=== PATIENT | male | born 2005 | race Caucasian/White ===

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

== ENCOUNTER 2024-08-26 23:07 | Emergency (ER) | payer OTHER, SELFPAY ==
--- NOTE | ~2024-08-26 | CT_ITS ---
CT of the Abdomen and Pelvis: Indication: Abdominal pain Technique: 2.5 mm axial scans were obtained through the abdomen and pelvis following intravenous adm inistration of 100 cc of Omnipaque 350. Dose reduction technique was used on this scan by utilizing a utomated exposure control and iterative reconstruction technique. The dose-length product (DLP) was 1 949.45 mGy-cm. Findings: Scans through the lung bases demonstrate minimal area of groundglass opacity in the left l ower lobe. The liver, spleen, pancreas, gallbladder, adrenals and kidneys are within normal limits. No evidence of aortic aneurysm. No lymphadenopathy. No bowel obstruction or bowel wall thickening. There are minimally distended, fluid-filled small krish l loops.. Images through the pelvis were performed. Urinary bladder unremarkable. No pelvic mass seen. No ascit es. Impression: Minimally distended fluid-filled small bowel loops could reflect small bowel enteritis, or possibly v garrett early partial small bowel obstruction. Focal area of groundglass opacity left lower lobe, possibly focal pneumonitis. Reviewed, dictated and finalized at [facility]. 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 Focal area of groundglass opacity left lower lobe, possibly focal pneumonitis.
[2024-08-26 23:11] VITALS: BP 153/90; PULSE 98; RESP 16; TEMP 36.9; O2SAT 100
[2024-08-27] VITALS (7 sets, daily range): BP systolic 106–170; BP diastolic 68–103; PULSE 89–103; RESP 14–20; O2SAT 98–100
[2024-08-27 00:06] LABS: Basophils Percent Auto 0.2 % (0.2-1.2); Eosinophils Absolute Auto 0.1 K/mm3 (0-0.3); Eosinophils Percent Auto 0.5 % (0-4.4); Hematocrit 49.3 % (42.0-52.0); Hemoglobin 16.8 g/dL (14.0-18.0); Immature Granulocyte Absolute 0.35 K/mm3 (0.00-0.031); Immature Granulocyte Percent A 2.1 % (0-0.5); Lymphocytes Absolute Auto 1.31 K/mm3 (0.9-3.2); Lymphocytes Percent Auto 7.9 % (18.3-44.2); Mean Corpuscular HGB Conc 34.1 g/dl (32-36); Mean Corpuscular Hemoglobin 31.4 pg (26-34); Mean Corpuscular Volume 92.1 fl (80-100); Mean Platelet Volume 10.1 fl (7.4-10.4); Monocytes Absolute Auto 1.1 K/mm3 (0.1-0.6); Monocytes Percent Auto 6.4 % (2.6-8.5); Neutrophils Absolute Auto 13.7 K/mm3 (1.3-6.7); Neutrophils Percent Auto 82.9 % (45.5-73.1); Platelet Count Result 307 k/mm3 (150-375); Red Blood Count 5.35 M/mm3 (4.6-6.20); Red Cell Distribution Width 13.1 % (11.5-14.5); White Blood Count 16.5 K/mm3 (4.5-10.0)
[2024-08-27] MEDS: SODIUM CHLORIDE 0.9% IV 1,000 ML 999 ML IV CONT (00:06)
[2024-08-27] MEDS: ONDANSETRON INJ 4 MG/2 ML VIAL IV PUSH (00:06)
[2024-08-27 00:11] LABS: Alanine Aminotransferase 54 U/L (6-50); Albumin Level 4.3 g/dL (3.7-5.6); Alkaline Phosphatase 78 U/L (58-237); Anion Gap 11 mmol/L (4-12); Aspartate Amino Transferase 29 U/L (17-59); Bilirubin,Total 0.6 mg/dL (0.2-1.3); Blood Urea Nitrogen 19 mg/dL (8-21); Carbon Dioxide 23 mmol/L (22-30); Chloride 106 mmol/L (98-107); Estimated CRCL calculation 217 ml/min; Estimated Glomerular Filt Rate > 60; Glucose 115 mg/dL (65-110); Lipase 42 U/L (23-300); Sodium 140 mmol/L (134-143)
--- NOTE | 2024-08-27 00:41 | ED_ITS ---
HPI - Abdominal Pain General Chief Complaint: Abdominal Pain Stated Complaint: abd pain,n/v Time Seen by Provider: 08/26/24 23:40 Source: patient Mode of arrival: ambulatory Limitations: no limitations History of Present Illness HPI narrative: This is a 18-year-old male presents to the emergency department for left-sided abdominal pain. Reports associated nausea and vomiting. Denies fevers or urinary symptoms Related Data Allergies Allergy/AdvReac Type Severity Reaction Status Date / Time amoxicillin Allergy Hives Verified 04/07/23 10:59 Review of Systems 2 Review of Systems: CONSTITUTIONAL: Denies fever GASTROINTESTINAL: Reports abdominal pain, nausea, vomiting GENITOURINARY: Denies dysuria All systems reviewed & are unremarkable except as noted in HPI and below PMFSH Past Medical History Medical History (Updated 08/27/24 @ 02:42 by Belén Ibarra PA-C) No active medical problems Social History Social History (Updated 08/27/24 @ 00:42 by Belén Ibarra PA-C) Smoking status: Never smoker Exam 2 Narrative: GENERAL: Well-appearing, well-nourished, and in no acute distress. HEAD: Normocephalic, atraumatic. EYES: EOMI. CHEST: Clear to auscultation. No respiratory distress. No wheezes rales or rhonchi HEART: Regular rate and rhythm. No murmur heard. Normal peripheral pulses. ABDOMEN: Soft, nondistended, normal active bowel sounds. Tender to palpation throughout the left side of the abdomen, without guarding EXTREMITIES: Normal range of motion. No edema. SKIN: Warm, dry, no rash. NEURO: No focal deficits. Alert and oriented x3. PSYCH: Normal mood and affect Course Course Emergency Course: patient updated on workup and agrees with plan of care Vital Signs Vital signs: Vital Signs Temperature 98.4 F 08/26/24 23:11 Pulse Rate 98 08/26/24 23:11 Respiratory Rate 16 08/26/24 23:11 Blood Pressure 153/90 H 08/26/24 23:11 Pulse Oximetry 100 08/26/24 23:11 Oxygen Delivery Room Air 08/26/24 23:11 Temperature 98.4 F 08/26/24 23:11 Pulse Rate 98 08/27/24 02:30 Respiratory Rate 16 08/27/24 02:30 Blood Pressure 143/83 H 08/27/24 02:30 Pulse Oximetry 98 08/27/24 02:30 Oxygen Delivery Room Air 08/26/24 23:11 MDM - Abdominal Pain MDM Narrative Medical decision making narrative: Patient presents to the emergency department for abdominal pain, nausea and vomiting. He is afebrile and nontoxic appearing. CBC with leukocytosis to 16.5. Metabolic panel without concerning findings. Lipase is normal. Urine with some evidence of dehydration. Patient hydrated with a L of IV fluids in the ED. CT abdomen pelvis shows findings likely of enteritis. Patient is having bowel movements in the ER. Tolerating oral intake. patient updated on workup and agrees with plan of care. He is to follow up with primary provider. He was given warnings to return to the ER Differential Diagnosis Differential diagnosis: Likely abdominal pain, calculus of kidney, diverticulitis, gastroenteritis and small bowel obstruction Lab Data Attestation: I reviewed the patient's lab results. 08/26/24 23:42 08/26/24 23:42 Labs: Lab Results 08/26/24 08/27/24 08/27/24 Range/Units 23:42 01:35 02:06 WBC 16.5 H (4.5-10.0) K/mm3 RBC 5.35 (4.6-6.20) M/mm3 Hgb 16.8 (14.0-18.0) g/dL Hct 49.3 (42.0-52.0) % MCV 92.1 (80-100) fl MCH 31.4 (26-34) pg MCHC 34.1 (32-36) g/dl RDW 13.1 (11.5-14.5) % Plt Count 307 (150-375) k/mm3 MPV 10.1 (7.4-10.4) fl Immature Gran % (Auto) 2.1 H (0-0.5) % Neut % (Auto) 82.9 H (45.5-73.1) % Lymph % (Auto) 7.9 L (18.3-44.2) % Hardeman % (Auto) 6.4 (2.6-8.5) % Eos % (Auto) 0.5 (0-4.4) % Baso % (Auto) 0.2 (0.2-1.2) % Lymph # (Auto) 1.31 (0.9-3.2) K/mm3 Hardeman # (Auto) 1.1 H (0.1-0.6) K/mm3 Eos # (Auto) 0.1 (0-0.3) K/mm3 Baso # (Auto) 0.0 (0.0-0.1) K/mm3 Abs Immat Gran (auto) 0.35 H (0.00-0.031) K/mm3 Absolute Neuts (auto) 13.7 H (1.3-6.7) K/mm3 Absolute Nucleated RBC 0.000 (0.0-0.012) K/mm3 Nucleated RBC % 0.0 (0.0-0.2) % Sodium 140 (134-143) mmol/L Potassium 4.0 (3.4-5.0) mmol/L Chloride 106 (98-107) mmol/L Carbon Dioxide 23 (22-30) mmol/L Anion Gap 11 (4-12) mmol/L BUN 19 (8-21) mg/dL Creatinine 0.70 (0.7-1.3) mg/dL Estim Creat Clear Calc 217 ml/min Estimated GFR > 60 (59 - ) Glucose 115 H (65-110) mg/dL Calcium 9.0 (8.9-10.7) mg/dL Total Bilirubin 0.6 (0.2-1.3) mg/dL AST 29 (17-59) U/L ALT 54 H (6-50) U/L Alkaline Phosphatase 78 (58-237) U/L Total Protein 7.0 (6.3-8.6) g/dL Albumin 4.3 (3.7-5.6) g/dL Lipase 42 (23-300) U/L Urine Color Yellow (Yellow) Urine Appearance Clear (Clear) Urine pH 7.5 (5.0-9.0) Ur Specific Chandler > 1.045 H (1.001-1.035) Urine Protein Negative (Negative) mg/dL Urine Glucose (UA) Negative (Negative) mg/dL Urine Ketones Negative (Negative) mg/dL Ur Blood (Man) Negative (Negative) Urine Nitrate Negative (Negative) Urine Bilirubin Negative (Negative) Urine Urobilinogen 1.0 (<2.0) mg/dL Leukocyte Esterase Rfl Negative (Negative) RCIARDO/UL Influenza A (RT-PCR) Negative (Negative) Influenza B (RT-PCR) Negative (Negative) RSV (RT-PCR) Negative (Negative) SARS-CoV-2 RNA (RT-PCR) Negative (Negative) Imaging Data Radiologist's impression: CT abdomen/pelvis: Fluid distended small bowel in the abdomen and pelvis measuring up to 3.4 cm, concerning for partial small bowel obstruction. No definite transition point. Findings may be the result of enteritis given that there is wall thickening of small bowel in the left upper quadrant. No free air Critical Care Time Critical Care Time Critical Care Time: No Discharge Plan Discharge Clinical Impression: Gastroenteritis Patient Disposition: Home, Self-Care Condition: Improved Instructions: Gastroenteritis (ED), Abdominal Pain (ED) Additional Instructions: Return to the ER if you experience fever, worsening abdominal pain with nausea and vomiting, you are unable to keep down liquids or solids, or any other symptoms that are concerning to you Small, frequent meals. Park diet. Remain well hydrated. Ondansetron as needed for nausea Follow up with primary care doctor Patient Language: Ethiopian Prescriptions: New ondansetron 4 mg tablet,disintegrating 4 mg PO Q8H PRN (Reason: nausea and vomiting) Qty: 10 0RF No Action cetirizine-pseudoephedrine [Zyrtec-D] 5-120 mg tablet extended release 12 hr 1 tablet PO Q12H PRN (Reason: nasal congestion) Qty: 12 0RF dextromethorphan-guaifenesin [Mucinex DM] 60-1,200 mg tablet extended release 12 hr 1 tablet PO Q12H Qty: 12 0RF Follow-up/Referrals: PHYSICIAN NOT ON STAFF,NONSTAFF [Primary Care Provider] -
[2024-08-27] MEDS: DICYCLOMINE HCL INJ 20 MG/2 ML VIAL IM (01:35)
[2024-08-27] MEDS: KETOROLAC 15 MG/ML VIAL (*BKC) IV PUSH (01:36)
[2024-08-27 01:41] LABS: Add Urine Microscopic? NO; Appearance Urine Clear (Clear); Bilirubin Urine Negative (Negative); Blood Urine Negative (Negative); Color Urine Yellow (Yellow); Glucose Urine UA Negative (Negative); Ketones Urine Negative (Negative); Leukocyte Esterase Ur Negative LEU/UL (Negative); Nitrate Urine Negative (Negative); Protein Urine Negative (Negative); Specific Grav Ur > 1.045 (1.001-1.035); pH Urine 7.5 (5.0-9.0)
[2024-08-27 02:47] LABS: Influenza A QL RT-PCR Negative (Negative); Influenza B QL RT-PCR Negative (Negative); RSV RNA, RT-PCR Negative (Negative); SARS-CoV-2 RNA PCR Negative (Negative)
--- OUTSIDE RECORDS SUMMARY | 2024-08-28 20:46 | XMS_ITS | Encounter Summary ---
Author Organization [facility] Address [address] [place] [address]. 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 Gender Identity Not on file Sexual Orientation Not on file documented as of this encounter Plan of Treatment Not on file documented as of this encounter Visit Diagnoses Not on filedocumented in this encounter Additional Health Concerns Infection Onset Date Last Indicated Resolved Time COVID-19 Rule Out 11/05/2020 11/05/2020 11/05/2020 6:43 PM CDT COVID-19 Rule Out 08/13/2021 08/13/2021 08/14/2021 7:00 PM ENDS BREAKAGE CLERK COVID-19 Confirmed 08/13/2021 08/13/2021 12:33 AM ENDS BREAKAGE CLERK COVID-19 Rule Out 07/31/2022 07/31/2022 07/31/2022 5:20 PM ENDS BREAKAGE CLERK documented as of this encounter Care Teams Hot Air Furnace Installer And Repairer Relationship Specialty Start Date End Date None, Provider, PCP - General 11/05/20 documented as of this encounter
--- OUTSIDE RECORDS SUMMARY | 2024-08-28 20:46 | XMS_ITS | Clinical Summary ---
Author Organization [facility] Address [address] [place] [address]. [place], [place] [id number] [place] [address] Care Team Providers Care Lending Activities Supervisor Name Role Phone None, Provider Primary Care Provider Unavaila ble Allergies Active Allergy Reactions Criticality Noted Date Comments Amoxicillin Hives Medium 11/05/2020 Medications ondansetron (ZOFRAN-ODT) 4 MG disintegrating tablet Take 1 tablet (4 mg total) by mouth every 8 (eight) hours as needed for Nausea. 20 tablet 2 Active ciprofloxacin (CILOXAN) 0.3 % ophthalmic solution Administer 4 drops in left ear twice a day for 7 days. 5 mL 3 Active Active Problems Problem Noted Date Diagnosed Date Preseptal cellulitis of left eye 08/11/2022 Family History Medical History Relation Comments Cancer Maternal Grandfather Ovarian Cancer Maternal Grandmother Relation Status Comments Father Alive Maternal Grandfather Maternal Grandmother Mother Alive Social History Tobacco Use Types Packs/Day Years Used Date Smoking Tobacco: Never Passive Smoke Exposure: Current Smokeless Tobacco: Never Tobacco Cessation:Counseling Given: Not Answered Alcohol Use Standard Drinks/Week Comments Not Currently 0 (1 standard drink = 0.6 oz pur e alcohol) Sex and Gender Information Value Date Recorded Sex Assigned at Not on file 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 Gender Identity Not on file Sexual Orientation Not on file Last Filed Vital Signs Vital Sign Reading Time Taken Comments Blood Pressure 148/78 01/10/2023 9:24 PM CDT Pulse 65 01/10/2023 9:24 PM CDT Temperature 37 ??C (98.6 ??F) 01/10/2023 9:24 PM CDT Respiratory Rate 18 01/10/2023 9:24 PM CDT Oxygen Saturation 100% 01/10/2023 9:24 PM CDT Inhaled Oxygen Concentration - - Weight 133 kg (293 lb 3.4 oz) 01/10/2023 9:24 PM CDT Height 188 cm (6' 2 ) 01/10/2023 9:24 PM CDT Body Mass Index 37.65 01/10/2023 9:24 PM CDT Body Mass Index Percentile 98.96% 01/10/2023 9:2 4 PM CDT Growth Chart: CDC (Boys, 2-2 0 Years) Plan of Treatment Health Maintenance Due Date Last Done Comments Annual Physical 11/02/2007 HPV Vaccines (1 - Male 3-dose series) 11/02/2019 Hepatitis C 2022 COVID-19 Vaccine (2 - season) 2024 02/19/2021 Influenza Adult (#1) 2024 10/08/2014 DTaP, Tdap and Td Vaccines (7 - Td or Tdap) 04/18/2026 04/18/2016, 11/25/2009, 02/13/2006, Additional history exists Pneumococcal Vaccine: Pediatrics (0 to 5 Years) and At-Risk Patients (6 to 64 Years) Aged Out 12/12/2006, 05/02/2005, 03/01/2005, Additional history exists No longer eligible based on patient's age to complete this topic Hepatitis B Vaccines Completed 10/08/2014, 03/01/2005, 2004, Additional history exists Meningococcal Vaccine Aged Out 04/18/2016 No clive josef eligible based on patient's age to complete this topic RSV Immunizations Under 20 Months Aged Out No longer eligible based on patient's age to complete this topic Insurance Advance Directives * Full Code (Latest Code Status on File) Date Activated Date Inactivated Comments 08/11/2022 9:22 PM 08/13/2022 4:08 PM Care Teams Lending Activities Supervisor Relationship Specialty Start Date End Date None, Provider, PCP - General 11/05/20
--- OUTSIDE RECORDS SUMMARY | 2024-08-28 20:50 | XMS_ITS ---
Author Organization [facility] Address [address] [place] [address] Care Team Providers Care Terminal Carman Name Role Phone Zachary Evans Primary Care Provider Dr. Elisa Greenberg [phone] REASON FOR VISIT Test results Encounters Encounter Location Date Provider Diagnosis [facility] [address] [place] [address] 02/26/2024 Zachary Evans Plan Of Treatment No Information Progress Notes * Maribeth CARABALLO WDOB:2005 (18 yo M)Acc No.[id number]:02/26/2024 Patient:?BARAK Maribeth Ayala :2005???Age:18 Y???Sex:Male Address:[address] [place], [address] * true * Date:? 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
--- OUTSIDE RECORDS SUMMARY | 2024-08-28 20:50 | XMS_ITS | Patient Health Record ---
Author Organization [facility] Address [address] [place] [address] Care Team Providers Care Associate Material Handler Name Role Phone Zachary Evans Primary Care Provider Dr. Elisa Greenberg Allergies Allergen (clinical drug ingredient) Drug/Non Drug Allergy documented on EMR Reaction Allergy Type Onset Date Status amoxicillin Amoxicillin anaphylaxis Drug Allergy A ctive Results Component Value Reference Range Notes VITAMIN B12 * Reviewed date:02/26/2024 12:02:22 AM Interpretation:286 Performing Lab:[facility], [address] [place] [address] Notes/Report: VITAMIN B12 [id number] PG/ML Indeterminate Range: 145 - 180 pg/mL Deficient Range: <145 pg/mL BLOOD COUNT WITH DIFF * Reviewed date:02/26/2024 12:02:22 AM Interpretation:Hb 17.1, WBC 8.5 Performing Lab:[facility], [address] [place] [address] Notes/Report: WBC 8.5 3.9-12.0 K/UL RBC 5.69 4.00-6.10 M/UL HEMOGLOBIN 17.1 13.2-18.0 GM/DL HEMATOCRIT 51.4 38.0-55.0 % MCV 90.4 80.0-99.0 FL MCH 30.0 26.0-35.0 PG MCHC 33.2 32.0-37.0 GM/DL RDW 13.5 11.6-15.0 % PLATELET 303 150-450 K/UL MPV 8.9 6.5-11.0 FL METHOD Automated Differential % NEUTROPHIL - AUTOMATED COUNT 66.8 40.0-70.0 % % LYMPHOCYTE - AUTOMATED COUNT 25.4 25.0-45.0 % % MONOCYTE - AUTOMATED COUNT 7.0 2.0-12.0 % % EOSINOPHIL - AUTOMATED COUNT 0.6 0.0-6.0 % % BASOPHIL - AUTOMATED COUNT 0.2 0.0-2.0 % ABSOLUTE NEUTROPHIL - AUTOMATED COUNT 5.7 1.3-7.5 K/UL ABSOLUTE LYMPHOCYTE - AUTOMATED COUNT 2.2 1.3-4.2 K/UL ABSOLUTE MONOCYTE - AUTOMATED COUNT 0.6 0.2-1.0 K/UL ABSOLUTE EOSINOPHIL - AUTOMATED COUNT 0.1 0.0-0.5 K/UL ABSOLUTE BASOPHIL - AUTOMATED COUNT 0.0 <=0.2 K/UL NUCLEATED RBC'S - AUTOMATED COUNT 0.3 COMPREHENSIVE METABOLIC PANE L (CMP) * Reviewed date:02/26/2024 12:02:23 AM Interpretation:GLU 79, GFR 127, ALT 78 Performing Lab:[facility], [address] [place] [id number] Notes/Report: BLOOD UREA NITROGEN 17 6-20 MG/DL SODIUM 140 135-145 MMOL/L POTASSIUM 4.5 3.5-5.2 MMOL/L CHLORIDE 106 98-108 MMOL/L CO2 CONTENT 22 24-32 MMOL/L GLUCOSE 79 65-110 MG/DL CALCIUM 10.1 8.6-10.6 MG/DL CREATININE 0.88 0.50-1.50 MG/DL TOTAL PROTEIN 7.6 6.0-8.0 GM/DL ALBUMIN 5.2 3.4-5.0 GM/DL ALK PHOS 83 40-125 U/L ALT 78 7-50 U/L AST 32 10-40 U/L BILIRUBIN, TOTAL 0.6 0.0-1.2 MG/DL ANION GAP 12 3-11 MMOL/L ESTIMATED GLOMERULAR FILTRATION RATE, CKD-EPI 127 >=60 mL/min/1.73m*2 HEP C ANTIBODY * Reviewed date:02/26/2024 12:02:23 AM Interpretation:Negative Performing Lab:[facility], [address] [place] [address] Notes/Report: HEPATITIS C AB Negative Negative LIPID PANEL * Reviewed date:02/26/2024 12:02:23 AM Interpretation:TC 135, LDL 78 Performing Lab:[facility], [address] [place] [id number] Notes/Report: CHOLESTEROL 135 <200 MG/DL HDL 42 >40 MG/DL TRIGLYCERIDE 76 <150 MG/DL LDL, CALCULATED 78 <130 MG/DL VITAMIN D (25 OH) * Reviewed date:02/26/2024 12:02:23 AM Interpretation:21 Performing Lab:[facility], [address] [place] [address] Notes/Report: VITAMIN D (25OH) 21 20-80 NG/ML <10 ng/mL: Deficiency 10-19 ng/mL: Insufficiency 20-80 ng/mL: Optimum level >80 ng/mL: Possible Toxicity TSH W/ FT4 REFLEX * Reviewed date:02/26/2024 12:02:23 AM Interpretation:1.74 Performing Lab:[facility], [address] [place] [address] Notes/Report: TSH W/ FT4 REFLEX 1.74 0.35-4.00 MCIU/ML HIV ANTIBODY/ANTIGEN SCREEN WITH REFLEX * Reviewed date:02/26/2024 12:02:23 AM Interpretation:Negative Performing Lab:[facility], [address] [place] [address] Notes/Report: HIV AG-AB Non-Reactive Non-Reactive HIV-1 AB Non-Reactive Non-Reactive HIV-1 AG Non-Reactive Non-Reactive HIV-2 AB Non-Reactive Non-Reactive Reason For Referral No Information Medications Medication SIG (Take, Route, Frequency, Duration) Notes Start Date End Date Status Multivitamin Men - Orally Once a day Not-Taking Vitamin D (Ergocalciferol) 1.25 MG (54953 UT) 1 capsule Orally Once a week for 91 days 03/19/2024 09/16/2024 Active ProAir HFA 108 (90 Base) MCG/ACT Inhalation PRN Not-Taking FLUoxetine HCl 20 MG TAKE 1 CAPSULE BY MOUTH EVERY DAY FOR 90 DAYS for 90 Active Ranitidine HCl 150 MG 1 capsule Orally O nce a day PRN Not-Taking Albuterol Sulfate HFA 108 (90 Base) MCG/ACT q 4hrs prn cough , wheeze and trouble breathing Inhalation q 4hrs prn for 365 days 12/02/2018 Not-Taking buPROPion HCl ER (XL) 150 MG 1 tablet in the morning Orally Once a day for 30 day(s) 02/21/2024 Active Fluticasone Propionate 50 MCG/ACT 1 spray in each nostril Nasally Once a day PRN Not-Taking Immunizations Vaccine Route Administration Date Status Comme nts DTAP VACCINE > 7 YRS IM Unknown 2004 Administered DTAP VACCINE > 7 YRS IM Unknown 03/01/2005 Administered DTAP VACCINE > 7 YRS IM Unknown 05/02/2005 Administered DTAP VACCINE > 7 YRS IM Unknown 02/13/2006 Administered Fluarix (IIV4) >6 MO NON-VFC Unknown 10/08/2014 Adminis tered HEP A VACC, PED/ADOL, 2 DOSE Unknown 10/08/2014 Adminis tered Hep A, pediatric, unspecifie d formulation Unknown 12/12/2006 Administered HEPB VACC PED/ADOL 3 DOSE IM Unknown 2004 Adminis tered HEPB VACC PED/ADOL 3 DOSE IM Unknown 2004 Adminis tered HEPB VACC PED/ADOL 3 DOSE IM Unknown 03/01/2005 Adminis tered HEPB VACC PED/ADOL 3 DOSE IM Unknown 10/08/2014 Adminis tered Hib, unspecified formulation Unknown 2004 Adminis tered Hib, unspecified formulation Unknown 03/01/2005 Adminis tered Hib, unspecified formulation Unknown 05/02/2005 Adminis tered IPV, NON-VFC Unknown 2004 Administered IPV, NON-VFC Unknown 03/01/2005 Administered IPV, NON-VFC Unknown 05/02/2005 Administered IPV, VFC Unknown 11/25/2009 Administered Meningococcal MCV4O Unknown 04/18/2016 Administered MMR VACCINE, SC Unknown 02/13/2006 Administered MMR VACCINE, SC Unknown 11/25/2009 Administered Pneumococcal conjugate PCV 7 Unknown 2004 Adminis tered Pneumococcal conjugate PCV 7 Unknown 03/01/2005 Adminis tered Pneumococcal conjugate PCV 7 Unknown 05/02/2005 Adminis tered Pneumococcal conjugate PCV 7 Unknown 12/12/2006 Adminis tered TDAP VACCINE >7 IM Unknown 04/18/2016 Administered VARICELLA IMMUNIZATION Unknown 11/23/2005 Administered VARICELLA IMMUNIZATION Unknown 11/25/2009 Administered Social History Tobacco Use: Social History Observation Description Date Details (start date - stop date) Never Smoker NA - NA Tobacco Use/Smoking Question Answer Notes Are you a nonsmoker Sexual History Question Answer Notes Had sex in the past 12 months (vaginal, oral, or anal)? No Have you ever had a Sexually transmitted disease ? No Tobacco use other than smoking: Question Answer Notes Are you an other tobacco user? No AUDIT-C (Standard) Question Answer Notes Did you have a drink containing alcohol in the p ast year? No Points 0 Interpretation Negative Section Notes: does not smoke cigarettes or marijuana alcohol in the past but not anymore Problems Problem Type SNOMED Code ICD Code Onset Dates Problem Status W/U Status Risk Notes Problem Attention deficit hyperactivity disorder (488485547) ADHD (attention deficit hyperactivity disorder) (F90.9) Active confirmed Problem High blood pressure (68940178) High blood pressure (I10) 03/19/20 24 Active confirmed Problem 15498438 Exercise-induced asthma (J45.990) Active confirmed Problem Mixed anxiety and depressive disorder (392703811) Anxiety and depression (F41.8) 03/25/20 24 Active confirmed Problem Body mass index 40+ - morbidly obese (292414224) Adult body mass index 50.0-59.9 (Z68.43) 02/21/20 24 Active confirmed Vital Signs Heart Rate 83 /min 03/19/2024 Temperature 98.4 degrees Fahrenheit 03/19/2024 Respiratory Rate 16 /min 03/19/2024 Height-cm 165.1 cm 03/19/2024 Blood pressure diastolic 90 mm Hg 03/19/2024 Oximetry 99 % 03/19/2024 Weight-kg 136.35 kg 03/19/2024 Height 65 in 03/19/2024 BMI Percentile 99.92 % 03/19/2024 Blood pressure systolic 140 mm Hg 03/19/2024 Weight 300.6 lbs 03/19/2024 BMI 50.02 kg/m2 03/19/2024 Encounters Encounter Location Date Provider Diagnosis [facility] [address] [place] [address] 02/21/2024 Zachary Evans [facility] care [facility] new doctor, encounter for Z71.89 ; ADHD (attention deficit hyperactivity disorder) F90.9 ; Anxiety and depression F41.8 ; Adult body mass index 50.0-59.9 Z68.43 ; Exercise counseling Z71.82 ; Dietary counseling Z71.3 ; Hyperlipidemia E78.5 ; Hypothyroidism E03.9 ; Vitamin D deficiency E55.9 ; Screening for HIV (human immunodeficiency virus) Z11.4 and Hepatitis C virus B19.[address] [address] 03/19/2024 Zachary Evans Anxiety and depressi on F41.8 ; High blood pressure I10 ; Vitamin D deficiency E55.9 ; Adult body mass index 50.0-59.9 Z68.43 ; Exercise counseling Z71.82 and Dietary counseling Z71.[address] [address] 02/26/2024 Zachary Evans Assessments Encounter Date Diagnosis (ICD Code) Assessment Notes Treatment Notes Treatment Clinical Notes Section Notes 02/21/2024 Establishing care with new doctor, encounter for (ICD-10 - Z71.89) Welcome to [facility] ([facility]). Our main clinic is at [address] [place] [address] in [facility]. with multiple satellite sites including [address] [place] [address]. . We are happy to participate in your care. 03/19/2024 High blood pressure (ICD-10 - I10) Lifestyle Modification in Treatment of hypertension Dietary salt restriction - the overall impact of moderate sodium reduction is a fall in blood pressure in hypertensive and normotensive individuals. Potassium supplementation - preferably by dietary modification, unless contraindicated by the presence of chronic kidney disease or use of drugs that reduce potassium excretion. DASH diet - The Dietary Approaches to Stop Hypertension (DASH) dietary pattern is high in vegetables, fruits, low-fat dairy products, whole grains, poultry, fish, and nuts and low in sweets, sugar-sweetened beverages, and red meats. The DASH dietary pattern is consequently rich in potassium, magnesium, calcium, protein, and fiber but low in saturated fat, total fat, and cholesterol. A trial in which all food was supplied to normotensive or mildly hypertensive adults found that the DASH dietary pattern reduced blood pressure by 6/4 mmHg compared with a typical [place]-style diet that contained the same amount of sodium and the same number of calories. Combining the DASH dietary pattern with modest sodium restriction produced an additive antihypertensive effect. Exercise - Aerobic, dynamic resistance and isometric resistance exercise can decrease systolic and diastolic pressure by, on average, 4 to 6 mmHg and 3 mmHg, respectively, independent of weight loss. Limited alcohol intake - Women who consume two or more alcoholic beverages per day and men who have three or more drinks per day have a significantly increased incidence of hypertension compared with nondrinkers. Weight loss - in overweight or obese individuals can lead to a significant fall in blood pressure independent of exercise. 03/19/2024 Anxiety and depression (ICD-10 - F41.8) Patient symptoms discussed as well as differential diagnosis. Treatment options discussed advised to take medication as prescribed. Medication works best in combination with behavioral health counseling. Possible side effects of medications discussed including black box warning. Call/ER with any crisis, SI/HI. Consistent use of medication as well as expected time frame for symptom improvement discussed. Need for follow-up care discussed. Counseling discussed as well as lifestyle modifications - Not limited to stress reduction, eating a healthy diet, daily exercise, avoidance of alcohol/caffeine/co ld medications/drugs. Return to clinic as discussed, call prior with concerns. 03/19/2024 Vitamin D deficiency (ICD-10 - E55.9) 02/21/2024 ADHD (attention deficit hyperactivity disorder) (ICD-10 - F90.9) Attention deficit hyperactivity disorder, or ADHD, is a condition that makes it hard to pay attention. So you may have problems when you try to focus, get organized, and finish tasks. It might make you more active than other people. Or you might do things without thinking first. ADHD is very common. It usually starts in musical engineer. Many adults don't realize they have it until their children are diagnosed. Then they become aware of their own symptoms. Doctors don't know what causes ADHD. But it often runs in families. ADHD can be treated with medicines, behavior training, and counseling. Treatment can improve your life. Learn all you can about ADHD. This will help you and your family understand it better. Take your medicines exactly as prescribed. If you miss a dose of your medicine, do not take an extra dose. If your doctor suggests counseling, find a counselor you like and trust. Talk openly and honestly. Be willing to make some changes. Find a support group for adults with ADHD. Talking to others with the same problems can help you feel better. It can also give you ideas about how to best cope with the condition. Get rid of distractions at your work space. Keep your desk clean. Try not to face a window or busy hallway. Use files, planners, and other tools to keep you organized. Limit use of alcohol, and do not use illegal drugs. People with ADHD tend to develop substance use disorder more easily than others. 03/19/2024 Adult body mass index 50.0-59.9 (ICD-10 - Z68.43) 02/21/2024 Anxiety and depression (ICD-10 - F41.8) Patient symptoms discussed as well as differential diagnosis. Treatment options discussed advised to take medication as prescribed. Medication works best in combination with behavioral health counseling. Possible side effects of medications discussed including black box warning. Call/ER with any crisis, SI/HI. Consistent use of medication as well as expected time frame for symptom improvement discussed. Need for follow-up care discussed. Counseling discussed as well as lifestyle modifications - Not limited to stress reduction, eating a healthy diet, daily exercise, avoidance of alcohol/caffeine/co ld medications/drugs. Return to clinic as discussed, call prior with concerns. 02/21/2024 Adult body mass index 50.0-59.9 (ICD-10 - Z68.43) 03/19/2024 Exercise counseling (ICD-10 - Z71.82) Patient advised to exercise 30-45 minutes per day 5 to 7 days a week. Patient advised to build up gradually as tolerated. Regular physical activity such as walking, climbing stairs, doing school community relations coordinator or even dancing help build and strengthen muscles, increases appetite, helps manage stress, and improves health and alertness. 02/21/2024 Exercise counseling (ICD-10 - Z71.82) Patient advised to exercise 30-45 minutes per day 5 to 7 days a week. Patient advised to build up gradually as tolerated. Regular physical activity such as walking, climbing stairs, doing school community relations coordinator or even dancing help build and strengthen muscles, increases appetite, helps manage stress, and improves health and alertness. 03/19/2024 Dietary counseling (ICD-10 - Z71.3) Counseled on healthy lifestyle and diet (lean proteins, 5 servings of fruits and vegetables, yogurt, nuts and seeds daily) stay away from soda and other sugary drinks, as well as pre-packaged/proces sed foods, decrease intake of fast foods, junk foods. Drink 2-3 liters of water daily. 02/21/2024 Dietary counseling (ICD-10 - Z71.3) Counseled on healthy lifestyle and diet (lean proteins, 5 servings of fruits and vegetables, yogurt, nuts and seeds daily) stay away from soda and other sugary drinks, as well as pre-packaged/proces sed foods, decrease intake of fast foods, junk foods. Drink 2-3 liters of water daily. 02/21/2024 Hyperlipidemia (ICD-10 - E78.5) SCREENING 02/21/2024 Hypothyroidism (ICD-10 - E03.9) SCREENING 02/21/2024 Vitamin D deficiency (ICD-10 - E55.9) SCREENING 02/21/2024 Screening for HIV (human immunodeficiency virus) (ICD-10 - Z11.4) SCREENING 02/21/2024 Hepatitis C virus (ICD-10 - B19.20) SCREENING Plan Of Treatment No Information Insurance Providers Payer Name Payer Address Payer Phone Subscriber Number Group Number Insured Name Patient Relationship to Insured Coverage Start Date Coverage End Date [facility] [address] [place] [address] [id number] Maribeth Caraballo Self - patient is the insured Medical (General) History Medical History History ICD Code Adopted Exercise induced Asthma Surgical History Surgery Date(Month/Year) hernia surgery
--- OUTSIDE RECORDS SUMMARY | 2024-08-28 20:50 | XMS_ITS ---
Author Organization [facility] Address [address] [place] [address] Care Team Providers Care Rn Quality Name Role Phone Zachary Evans Primary Care Provider Dr. Elisa Greenberg [phone] REASON FOR VISIT 3 month f/u htn Encounters Encounter Location Date Provider Diagnosis [facility] [address] [place] [address] 06/19/2024 Zachary Evans Plan Of Treatment No Information Progress Notes * ILYAMaribeth WDOB:2005 (18 yo M)Acc No.[id number]:06/19/2024 Progress Notes Patient:?Maribeth CARABALLO Provider:?Zachary Evans MD :2005???Age:18 Y???Sex:Male Kemar e:06/19/2024 Address:[address] [facility] Subjective: * Chief Complaints: * ???1. 3 month f/u htn. * Medical History:? Objective: Assessment: Plan: * Treatment: * Care Plan Details* * Electronic signature of Laya Evans MD on 08/28/2024 at 08:50 PM CHIROPRACTIC PHYSICIAN Sign off status: Pending Visit Status:?N/S (No-Show) * Provider:?Zachary Evans MD Date:?06/19/20 24 Generated for Mark sinha/Christal/Jada on:?08/28/2024 08:50 PM CHIROPRACTIC PHYSICIAN
--- OUTSIDE RECORDS SUMMARY | 2024-08-28 20:50 | XMS_ITS ---
Author Organization [facility] Address [address] [place] [address] Care Team Providers Care Boot Turner Name Role Phone Zachary Evans Primary Care Provider Dr. Elisa Greenberg [phone] Allergies Allergen (clinical drug ingredient) Drug/Non Drug Allergy documented on EMR Reaction Allergy Type Onset Date Status amoxicillin Amoxicillin anaphylaxis Drug Allergy A ctive REASON FOR VISIT lab f/u Medications Medication SIG (Take, Route, Frequency, Duration) Notes Start Date End Date Status Multivitamin Men - Orally Once a day Not-Taking ProAir HFA 108 (90 Base) MCG/ACT Inhalation PRN Not-Taking Ranitidine HCl 150 MG 1 capsule Orally O nce a day PRN Not-Taking Albuterol Sulfate HFA 108 (90 Base) MCG/ACT q 4hrs prn cough , wheeze and trouble breathing Inhalation q 4hrs prn for 365 days 12/02/2018 Not-Taking FLUoxetine HCl 20 MG 1 capsule Orally On ce a day for 90 days 03/19/2024 Active Vitamin D (Ergocalciferol) 1.25 MG (07093 UT) 1 capsule Orally Once a week for 91 days 03/19/2024 09/16/2024 Active buPROPion HCl ER (XL) 150 MG 1 tablet in the morning Orally Once a day for 30 day(s) 02/21/2024 Active Fluticasone Propionate 50 MCG/ACT 1 spray in each nostril Nasally Once a day PRN Not-Taking Social History Tobacco Use: Social History Observation [...] Are you an other tobacco user? No Problems Problem Type SNOMED Code ICD Code Onset Dates Problem Status W/U Status Risk Notes Problem High blood pressure (55888495) High blood pressure (I10) 03/19/2024 Active confirmed Vital Signs Temperature 98.4 degrees Fahrenheit 03/19/20 24 Blood pressure systolic 140 mm Hg 03/19/20 24 Blood pressure diastolic 90 mm Hg 024 Heart Rate 83 /min 03/19/2024 Respiratory Rate 16 /min 03/19/2024 Height 65 in 03/19/2024 Weight 300.6 lbs 03/19/2024 BMI 50.02 kg/m2 03/19/2024 Oximetry 99 % 03/19/2024 BMI Percentile 99.92 % 03/19/2024 Height-cm 165.1 cm 03/19/2024 Weight-kg 136.35 kg 03/19/2024 Encounters Encounter Location Date Provider Diagnosis [facility] [address] [place] [address] 03/19/2024 Zachary Evans Anxiety and depression F41.8 ; High blood pressure I10 ; Vitamin D deficiency E55.9 ; Adult body mass index 50.0-59.9 Z68.43 ; Exercise counseling Z71.82 and Dietary counseling Z71.3 Assessments Encounter Date Diagnosis (ICD Code) Assessment Notes Treatment Notes Treatment Clinical Notes Section Notes 03/19/2024 Anxiety and depression (ICD-10 - F41.8) [...] a healthy diet, daily exercise, avoidance of alcohol/caffeine/col d medications/drugs. Return to clinic as discussed, call prior with concerns. 03/19/2024 High blood pressure (ICD-10 - I10) [...] by 6/4 mmHg compared with a typical Dominican-style diet that contained the same amount of [...] in blood pressure independent of exercise. 03/19/2024 Vitamin D deficiency (ICD-10 - E55.9) 03/19/2024 Adult body mass index 50.0-59.9 (ICD-10 - Z68.43) 03/19/2024 Exercise counseling (ICD-10 - Z71.82) Patient advised to exercise 30-45 minutes per day 5 to 7 days a week. Patient advised to build up gradually as tolerated. Regular physical activity such as walking, climbing stairs, doing email designer or even dancing help build and strengthen muscles, increases appetite, helps manage stress, and improves health and alertness. 03/19/2024 Dietary counseling (ICD-10 - Z71.3) Counseled on healthy lifestyle and diet (lean proteins, 5 servings of fruits and vegetables, yogurt, nuts and seeds daily) stay away from soda and other sugary drinks, as well as pre-packaged/process ed foods, decrease intake of fast foods, junk foods. Drink 2-3 liters of water daily. Plan Of Treatment Medication Medication Name Sig Start Date Stop Date Notes FLUoxetine HCl 20 MG 1 capsule Orally On ce a day for 90 days 03/19/2024 Vitamin D (Ergocalciferol) 1.25 MG (93289 UT) 1 capsule Orally Once a week for 91 days 03/19/2024 09/16/2024 FLUoxetine HCl 10 MG 1 capsule Orally Once a day Treatment Notes Assessment Notes Anxiety and depression Patient symptoms discussed as well as differential [...] a healthy diet, daily exercise, avoidance of alcohol/caffeine/cold medications/drugs. Return to clinic as discussed, call prior with concerns. High blood pressure Lifestyle Modification in Treatment of hypertension Dietary [...] by 6/4 mmHg compared with a typical Dominican-style diet that contained the same amount of [...] fall in blood pressure independent of exercise. Exercise counseling Patient advised to e xercise 30-45 minutes per day 5 to 7 days a week. Patient advised to build up gradually as tolerated. Regular physical activity such as walking, climbing stairs, doing email designer or even dancing help build and strengthen muscles, increases appetite, helps manage stress, and improves health and alertness. Dietary counseling Counseled on healthy lifestyle and diet (lean proteins, 5 servings of fruits and vegetables, yogurt, nuts and seeds daily) stay away from soda and other sugary drinks, as well as pre-packaged/processed foods, decrease intake of fast foods, junk foods. Drink 2-3 liters of water daily. 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 Mr. Caraballo is a 18-year-old gentleman with PMHx anxiety, ADHD, depression who presents in follow-up with lab work. 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 Labs are significant for vitamin D of 21. States he was getting very more anxious with Wellbutrin and it did not help with his ADD. He is mother also had a bad reaction with Wellbutrin making her suicidal and he wants to stop that. We discussed going up on fluoxetine and completely stopping bupropion at this time. 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 * ROS:?General/Constitutional:?Patient denies?chills, fever, headache, unexplained weight gain or loss.?Patient complaining of?fatigue.?Ophthalmologic:?Patient denies?blurred vision, eye discharge.?ENT:?Patient denies?sore throat, swollen glands, ear discharge, ear pain.?Respiratory:?Patient denies?chronic cough, hemoptysis, shortness of breath, wheezing, sputum production.?Cardiovascular:?Patient denies?chest pain, claudication, dizziness, orthopnea, palpitations.?Gastrointestinal:?Patient denies?abdominal pain, blood in stool, change in bowel habits, constipation, diarrhea, nausea, vomiting.?Musculoskeletal:?Patient denies?joint stiffness, muscle aches, swollen joints, weakness.?Skin:?Patient denies?discoloration, mole(s), rash.?Neurologic:?Patient denies?dizziness, headache, memory loss, seizures, tingling/numbness.? * Medical History:? * Surgical History:?hernia johnathan demi * Hospitalization/Major Diagno stic Procedure:?No Hospitalization History. * Family History:?Father: conor torres.?Mother: alive.? 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 (list all that apply)?None ?Advanced Care Planning Date?03/19/2024 ?Reviewed/Updated?03/19/2024 ???Sexual History:?Sexual History?Had sex in the past 12 months (vaginal, oral, or anal)??No ?Have you ever had a Sexually transmitted disease??No ?Details of Sexual History?Are you sexually active??No ?Are you having any sexual problems??No ?Have you had any sexually transmitted diseases (STDs)??No ?Sexual Abuse?History:?none ???Drugs/Alcohol:?Drugs?Have you used drugs other than those for medical reasons in the past 12 months??No ?Caffeine?Intake:?1-2 cups per day * Medications:?TakingFLUoxetin e HCl 10 MG Capsule 1 capsule Orally Once a day buPROPion HCl ER (XL) 150 MG Tablet Extended Release 24 Hour 1 tablet in the morning Orally Once a day Taking FLUoxetine HCl 10 MG Capsule 1 capsule Orally Once a day Taking buPROPion HCl ER (XL) 150 MG Tablet Extended Release 24 Hour 1 tablet in the morning Orally Once a day Not-Taking/PRNFluticasone Propionate 50 MCG/ACT Suspension 1 spray in each nostril Nasally Once a day , Notes to Pharmacist: PRNRanitidine HCl 150 MG Capsule 1 capsule Orally Once a day , Notes to Pharmacist: PRNMultivitamin Men - Tablet Orally Once a day ProAir HFA 108 (90 Base) MCG/ACT Aerosol Solution Inhalation , Notes to Pharmacist: PRNAlbuterol Sulfate HFA 108 (90 Base) MCG/ACT Aerosol Solution q 4hrs prn cough , wheeze and trouble breathing Inhalation q 4hrs prn Medication List reviewed and reconciled with the patientNot-Taking/PRN Fluticasone Propionate 50 MCG/ACT Suspension 1 spray in each nostril Nasally Once a day , Notes to Pharmacist: PRNNot-Taking/PRN Ranitidine HCl 150 MG Capsule 1 capsule Orally Once a day , Notes to Pharmacist: PRNNot-Taking/PRN Multivitamin Men - Tablet Orally Once a day Not-Taking/PRN ProAir HFA 108 (90 Base) MCG/ACT Aerosol Solution Inhalation , Notes to Pharmacist: PRNNot-Taking/PRN Albuterol Sulfate HFA 108 (90 Base) MCG/ACT Aerosol Solution q 4hrs prn cough , wheeze and trouble breathing Inhalation q 4hrs prn Medication List reviewed and reconciled with the patient * Allergies:?Amoxicillin: anap hylaxis - Allergyno[Allergies Verified] Objective: * Vitals: Wt 300.6lbs?? 03/19/2024 11:32:01 AM CDT?? Wt-kg* 136.35 kg?? 03/19/2024 11:32:01 AM CDT?? Willie isca?Semaj LU Ht* 65 in?? 03/19/2024 11:32:01 AM CDT?? Willie isca?Semaj LU Ht-cm* 165.1 cm?? 03/19/2024 11:32:01 AM CDT?? Willie isca?Semaj LU BMI* 50.02Index?? 03/19/2024 11:32:01 AM CDT?? Willie isca?Semaj LU BMI %* 99.92 %?? 03/19/2024 11:32:01 AM CDT?? Willie isca?Semaj LU BP* repeat:140/90mm Hg?? 03/19/2024 11:53:53 AM CDT? ? Zachary?Nathan 150/98 mm Hg?? 03/19/2024 11:32:01 AM CDT?? Willie isca?Semaj LU Temp* 98.4F?? 03/19/2024 11:32:01 AM CDT?? Willie isca?Semaj LU HR* 83/min?? 03/19/2024 11:32:01 AM CDT?? Willie isca?Semaj LU RR* 16/min?? 03/19/2024 11:32:01 AM CDT?? Willie isca?Semaj LU Oxygen sat %* 99%?? 03/19/2024 11:32:01 AM CDT?? Willie isca?Semaj LU Wt %* 99.89 %?? 03/19/2024 11:32:01 AM CDT?? Willie isca?Semaj LU Ht %* 5.31 %?? 03/19/2024 11:32:01 AM CDT?? 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 extraocular movement intact, sclera anicteric.?EARS:?hearing intact to whispered voice.?NOSE:?nares patent.?ORAL CAVITY:? mucosa moist, no lesions.?NECK/THYROID:?neck supple, full range of motion, no cervical lymphadenopathy.?SKIN:? good turgor, no rashes, warm and dry.?HEART:?regular rate and rhythm, S1, S2 normal, no murmurs.?LUNGS:?clear to auscultation bilaterally. No wheezing, ronchi, rales or cough..?ABDOMEN:?Abdomen soft, nontender, nondistended. Normal bowel sounds present. No masses palpable.?MUSCULOSKELETAL:?No joint swelling or joint deformity , full range of motion.?EXTREMITIES:?No edema.?NEUROLOGIC:? Alert and oriented, cooperative with exam, normal gait.?PSYCH:?cognitive function intact , judgement and insight good , mood/affect full range.? Assessment: * Assessment: 1.?High blood pressure - I10 (Primary)???2.?Anxiety and depression - F41.8???3.?Vitamin D deficiency - E55.9???4.?Adult body mass index 50.0-59.9 - Z68.43???5.?Exercise counseling - Z71.82???6.?Dietary counseling - Z71.3??? Plan: * Treatment: 2.?Anxiety and depression? Stop FLUoxetine HCl Capsule, 10 MG, 1 capsule, Orally, Once a day;?Start FLUoxetine HCl Capsule, 20 MG, 1 capsule, Orally, Once a day, 90 days, 90 Capsule, Refills 0.?? Notes: Patient symptoms discussed as well as differential [...] a healthy diet, daily exercise, avoidance of alcohol/caffeine/cold medications/drugs. Return to clinic as discussed, call prior with concerns.?? 3.?Vitamin D deficiency? Start Vitamin D (Ergocalciferol) Capsule, 1.25 MG (77904 UT), 1 capsule, Orally, Once a week, 91 days, 13 Capsule, Refills 1.?? 4.?Exercise counseling? Notes: Patient advised to exercise 30-45 minutes per day 5 to 7 days a week. Patient advised to build up gradually as tolerated. Regular physical activity such as walking, climbing stairs, doing email designer or even dancing help build and strengthen muscles, increases appetite, helps manage stress, and improves health and alertness.?? 5.?Dietary counseling? Notes: Counseled on healthy lifestyle and diet (lean proteins, 5 servings of fruits and vegetables, yogurt, nuts and seeds daily) stay away from soda and other sugary drinks, as well as pre-packaged/processed foods, decrease intake of fast foods, junk foods. Drink 2-3 liters of water daily.?? * Procedure Codes:? * Preventive Medicine:? ??Counseling:?Care goal follow-up plan:?BMI management provided?Yes ?Above Normal BMI Follow-up?Giving encouragement to exercise, Lifestyle education regarding diet ?Exercise Counseling Provided-?Yes ?Nutrition/Dietary Counseling provided?Yes * Follow Up:?3 Months (Reason: high blood pressure) * Care Plan Details* * Sign off status: Completed Visit Status:?CHK (Check Out ) true * Provider:?Zachary Evans MD Date:?03/19/20 24 Generated for Mark sinha/Fasterling/eTransmitting on:?08/28/2024 08:50 PM IT NETWORK ENGINEER History and Physical Notes * Examination Category Sub-Category Detail Notes Category Not es General Examination GENERAL APPEARANCE: alert, w ell hydrated, in no distress, Morbidly obese HEAD: normocephalic , atra umatic EYES: extraocular movement intact, sclera anicteric EARS: hearing intact to wh ispered voice NOSE: nares patent NECK/THYROID: neck supple, full ra nge of motion, no cervical lymphadenopathy HEART: regular rate and rhy thm, S1, S2 normal, no murmurs LUNGS: clear to auscultatio n bilaterally. No wheezing, ronchi, rales or cough. ABDOMEN: Abdomen soft, nonten uche, nondistended. Normal bowel sounds present. No masses palpable NEUROLOGIC: Alert and oriented, cooperative with exam, normal gait SKIN: good turgor, no rash es, warm and dry EXTREMITIES: No edema MUSCULOSKELETAL: No joint swelling or joint deformity , full range of motion PSYCH: cognitive function i ntact , judgement and insight good , mood/affect full range ORAL CAVITY: mucosa moist, no les ions
== END 2024-08-27 03:06 | disposition home or self-care (01) ==
PROVIDERS: Emergency Provider Physician Assistant
DX: K52.9 Noninfective gastroenteritis and colitis, unspecified (principal); Z20.822 Contact with and (suspected) exposure to COVID-19
CPT/HCPCS: 36415; 74177; 80053; 81003; 83690; 85025; 87637; 96361; 96372; 96374; 99284; J0500; J1885; J2405; J7030; Q9967

== ENCOUNTER 2025-05-22 23:13 | Emergency (ER) | payer OTHER, SELFPAY ==
--- OUTSIDE RECORDS SUMMARY | 2024-06-19 05:00 | XMS_ITS ---
Author Organization [facility] Address [address] [place] [address] Care Team Providers Care Gusset Stitcher Name Role Phone Zachary Evans Primary Care Provider Dr. Elisa Greenberg [phone] REASON FOR VISIT 3 month f/u htn Encounters Encounter Location Date Provider Diagnosis [facility] [address] [place] [address] 06/19/2024 Zachary Evans Plan Of Treatment No Information Progress Notes * Maribeth CARABALLO WDOB:2005 (19 yo M)Acc No.[id number]:06/19/2024 Progress Notes Patient: Haily Laycristobal Ayala Provider: Pia Evans MD :2005 A ge:18 Y S ex:Male Date:06/19/2024 Address:[address] [facility] Subjective: * Chief Complaints: * 3 month f/u htn Care Plan Details* * Electronic signature of Laya Evans MD on 05/23/2025 at 12:30 AM CDT Sign off status: Pending Visit Status: N /S (No-Show) * Provider: Pia Evans MD Date: 08/19/2023 Generated for Printi ng/Faxing/eTransmitting on: 12:30 AM CDT
--- NOTE | ~2025-05-22 | CT_ITS ---
CT HEAD NON-CONTRAST Clinical History: AMS Comparison: None Technique: Unenhanced axial images skull base to vertex Coronal, sagittal reformats CT images acquired with automatic exposure control for dose reduction DLP: 681 mGy-cm Findings: Sulci, ventricles: Unremarkable. No intracerebral hemorrhage. No evidence acute territorial infarct. No mass effect, midline shift. Bony calvarium intact. Visualized paranasal sinuses: Clear. Mastoid air cells: Clear. IMPRESSION: 1. No acute intracranial findings. Reviewed, dictated and finalized at location R.
[2025-05-23] VITALS (9 sets, daily range): BP systolic 93–158; BP diastolic 45–86; PULSE 84–115; RESP 14–24; TEMP 36.7–37.1; O2SAT 93–100
--- NOTE | 2025-05-23 00:12 | ED_ITS ---
HPI - Alcohol General Chief Complaint: Alcohol Stated Complaint: ALCOHOL INTOXICATION Time Seen by Provider: 05/23/25 00:06 Source: other (friends) Mode of arrival: EMS Limitations: altered mental status History of Present Illness HPI narrative: This is a 19 year old male that presents to the ER for altered mental status. Patient reportedly drank a half a fifth of vodka over about an hour. This happened sometime this evening. He friends found him very confused, lethargic, called EMS. They did not report any falls/injuries. Patient reponsive to sternal rub. Related Data Allergies Allergy/AdvReac Type Severity Reaction Status Date / Time amoxicillin Allergy Hives Verified 04/07/23 10:59 Review of Systems 2 Review of Systems: All systems reviewed & are unremarkable except as noted in HPI and below PMFSH Past Medical History Medical History (Updated 05/23/25 @ 04:19 by Belén Ibarra PA-C) No active medical problems Social History Social History (Updated 08/27/24 @ 00:42 by Belén Ibarra PA-C) Smoking status: Never smoker Exam 2 Narrative: GENERAL: Lethargic, well-nourished, and in no acute distress. HEAD: Normocephalic, atraumatic. EYES: PERRLA and EOMI. ENT: Nares clear, no rhinorrhea or epistaxis. Mucous membranes moist. Oropharynx without tonsillar hypertrophy exudate or other lesions. Bilateral TMs pearly kline non-bulging NECK: Supple. No adenopathy or masses. No carotid bruits or JVD CHEST: Clear to auscultation. No respiratory distress. No wheezes rales or rhonchi HEART: Regular rate and rhythm. No murmur heard. Normal peripheral pulses. ABDOMEN: Soft, nontender, nondistended, normal active bowel sounds. EXTREMITIES: Normal range of motion. No edema. SKIN: Warm, dry, no rash. NEURO: Responds to sternal rub, slurring words Course Vital Signs Vital signs: Vital Signs Temperature 98.1 F 05/23/25 00:04 Pulse Rate 84 05/23/25 00:04 Respiratory Rate 14 05/23/25 00:04 Blood Pressure 105/61 05/23/25 00:04 Pulse Oximetry 100 05/23/25 00:04 Oxygen Delivery Room Air 05/23/25 00:04 Temperature 98.1 F 05/23/25 00:04 Pulse Rate 84 05/23/25 00:04 Respiratory Rate 14 05/23/25 00:04 Blood Pressure 105/61 05/23/25 00:04 Pulse Oximetry 100 05/23/25 00:04 Oxygen Delivery Room Air 05/23/25 00:04 MDM - Alcohol MDM Narrative Medical decision making narrative: Patient presents to the emergency department for alcohol intoxication. Lethargic, responsive to sternal rub upon arrival. Patient hydrated and watched in the ER. Now ambulatory with a steady gait. Vital signs are normal. No concerning findings on laboratory evaluation. Alcohol level is 259. CT brain without acute findings. Will obtain a sober ride for patient. Ready for discharge Differential Diagnosis Differential diagnosis: Likely alcohol intoxication and other (subdural hematoma) Lab Data Attestation: I reviewed the patient's lab results. 05/23/25 01:08 05/23/25 01:08 Labs: Lab Results 05/23/25 05/23/25 Range/Units 01:08 02:12 WBC 7.1 (4.5-10.0) K/mm3 RBC 5.33 (4.6-6.20) M/mm3 Hgb 16.2 (14.0-18.0) g/dL Hct 47.7 (42.0-52.0) % MCV 89.5 (80-100) fl MCH 30.4 (26-34) pg MCHC 34.0 (32-36) g/dl RDW 12.9 (11.5-14.5) % Plt Count 259 (150-375) k/mm3 MPV 9.7 (7.4-10.4) fl Immature Gran % (Auto) 0.1 (0-0.5) % Neut % (Auto) 76.1 H (45.5-73.1) % Lymph % (Auto) 19.1 (18.3-44.2) % [place] % (Auto) 4.2 (2.6-8.5) % Eos % (Auto) 0.1 (0-4.4) % Baso % (Auto) 0.4 (0.2-1.2) % Lymph # (Auto) 1.35 (0.9-3.2) K/mm3 [place] # (Auto) 0.3 (0.1-0.6) K/mm3 Eos # (Auto) 0.0 (0-0.3) K/mm3 Baso # (Auto) 0.0 (0.0-0.1) K/mm3 Abs Immat Gran (auto) 0.01 (0.00-0.031) K/mm3 Absolute Neuts (auto) 5.4 (1.3-6.7) K/mm3 Absolute Nucleated RBC 0.000 (0.0-0.012) K/mm3 Nucleated RBC % 0.0 (0.0-0.2) % Sodium 142 (137-145) mmol/L Potassium 3.6 (3.4-5.0) mmol/L Chloride 108 H (98-107) mmol/L Carbon Dioxide 22 (22-30) mmol/L Anion Gap 12 (4-12) mmol/L BUN 10 D (9-20) mg/dL Creatinine 0.65 L (0.7-1.3) mg/dL Estim Creat Clear Calc Not Reportable Estimated GFR > 60 (59 - ) Glucose 123 H (65-110) mg/dL Calcium 8.3 L (8.4-10.2) mg/dL Total Bilirubin 0.3 (0.2-1.3) mg/dL AST 30 (17-59) U/L ALT 74 H (6-50) U/L Alkaline Phosphatase 76 (38-126) U/L Total Protein 6.9 (6.3-8.2) g/dL Albumin 4.3 (3.5-5.1) g/dL Urine Opiates Screen Negative (Negative) Urine Methadone Screen Negative (Negative) Ur Barbiturates Screen Negative (Negative) Ur Phencyclidine Scrn Negative (Negative) Ur Amphetamine Screen Negative (Negative) U Benzodiazepines Scrn Negative (Negative) Urine Cocaine Screen Negative (Negative) U Cannabinoids Screen Negative (Negative) Ethyl Alcohol 259 (<10) mg/dL Imaging Data Radiologist's impression: CT brain: No hemorrhage, hydrocephalus, mass effect or herniation. Bones are unremarkable Critical Care Time Critical Care Time Critical Care Time: No Discharge Plan Discharge Clinical Impression: Alcoholic intoxication Qualifiers: Complication of substance-induced condition: uncomplicated Qualified Code(s): F 10.230 - Alcohol use, unspecified with intoxication, uncomplicated Patient Disposition: Home Condition: Improved Instructions: Abuse of Alcohol (ED) Additional Instructions: Return to the emergency department if you experience fever, chest pain, shortness of breath, abdominal pain with nausea and vomiting, weakness, numbness, or any other symptoms that are concerning to you. Follow up with your primary care doctor Patient Language: Rwandan Prescriptions: No Action cetirizine-pseudoephedrine [Zyrtec-D] 5-120 mg tablet extended release 12 hr 1 tablet PO Q12H PRN (Reason: nasal congestion) Qty: 12 0RF dextromethorphan-guaifenesin [Mucinex DM] 60-1,200 mg tablet extended release 12 hr 1 tablet PO Q12H Qty: 12 0RF ondansetron 4 mg tablet,disintegrating 4 mg PO Q8H PRN (Reason: nausea and vomiting) Qty: 10 0RF Follow-up/Referrals: PHYSICIAN NOT ON STAFF,NONSTAFF [Non-Staff]
--- OUTSIDE RECORDS SUMMARY | 2025-05-23 00:30 | XMS_ITS | Clinical Summary ---
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 Gender Identity Not on file Sexual Orientation Not on file Last Filed Vital Signs Vital Sign Reading Time Taken Comments Blood Pressure 148/78 01/10/2023 9:24 PM CDT Pulse 65 01/10/2023 9:24 PM CDT Temperature 37 C (98.6 F) 01/10/2023 9:24 PM CDT Respiratory Rate 18 01/10/2023 9:24 PM CDT Oxygen Saturation 100% 01/10/2023 9:24 PM CDT Inhaled Oxygen Concentration - - Weight 133 kg (293 lb 3.4 oz) 01/10/2023 9:24 PM CDT Height 188 cm (6' 2) 01/10/2023 9:24 PM CDT Body Mass Index 37.65 01/10/2023 9:24 PM CDT Plan of Treatment Health Maintenance Due Date Last Done Comments Annual Physical 11/02/2007 HPV Vaccines (1 - Male 3-dose series) 11/02/2019 Meningococcal B Vaccine (1 of 2 - Standard) 2020 Hepatitis C 2022 COVID-19 Vaccine (2 - season) 2025 02/19/2021 Influenza Adult (#1) 2025 10/08/2014 DTaP, Tdap and Td Vaccines (7 - Td or Tdap) 04/18/2026 04/18/2016, 11/25/2009, 02/13/2006, Additional history exists Pneumococcal Vaccine: Pediatrics (0 to 5 Years) and At-Risk Patients (6 to 49 Years) Aged Out 12/12/2006, 05/02/2005, 03/01/2005, Additional [...] patient's age to complete this topic Insurance [employer] Advance Directives * Full Code (Latest Code Status on File) Date Activated Date Inactivated Comments 08/11/2022 9:22 PM 08/13/2022 4:08 PM Care Teams Coverstitch Machine Operator Relationship Specialty Start Date End Date None, Provider, PCP - General 11/05/20
--- OUTSIDE RECORDS SUMMARY | 2025-05-23 00:30 | XMS_ITS | Patient Health Record ---
Author Organization [facility] Address [address] [place] [address] Care Team Providers Care Chief Substation Operator Name Role Phone Nathan, Zachary Primary Care Provider Dr. Elisa Greenberg Allergies Allergen (clinical drug ingredient) Drug/Non Drug Allergy documented on EMR Reaction Allergy Type Onset Date Status amoxicillin Amoxicillin anaphylaxis Drug Allergy A ctive Reason For Referral No Information Medications Medication SIG (Take, Route, Frequency, Duration) Notes Start Date End Date Status Multivitamin Men - Tablet Orally Once a day Not-Taking /PRN ProAir HFA 108 (90 Base) MCG/ACT Aerosol Solution Inhalation PRN Not-Taking/PRN FLUoxetine HCl 20 MG Capsule TAKE 1 CAPSULE BY MOUTH EVERY DAY FOR 90 DAYS; Duration: 90 Active Ranitidine HCl 150 MG Capsule 1 capsule Orally Once a day PRN Not-Taking/PRN Albuterol Sulfate HFA 108 (90 Base) MCG/ACT Aerosol Solution q 4hrs prn cough , wheeze and trouble breathing Inhalation q 4hrs prn; Duration: 365 days 12/02/2018 Not-Taking/PRN buPROPion HCl ER (XL) 150 MG Tablet Extended Release 24 Hour 1 tablet in the morning Orally Once a day; Duration: 30 day(s) 02/21/2024 Active Fluticasone Propionate 50 MCG/ACT Suspension 1 spray in each nostril Nasally Once a day PRN Not-Taking/PRN Immunizations Vaccine Route Administration Date Status Comme nts VARICELLA IMMUNIZATION Unknown 11/23/2005 Administered VARICELLA IMMUNIZATION Unknown 11/25/2009 Administered TDAP VACCINE >7 IM Unknown 04/18/2016 Administered Pneumococcal conjugate PCV 7 Unknown 2004 Adminis tered Pneumococcal conjugate PCV 7 Unknown 03/01/2005 Adminis tered Pneumococcal conjugate PCV 7 Unknown 05/02/2005 Adminis tered Pneumococcal conjugate PCV 7 Unknown 12/12/2006 Adminis tered MMR VACCINE, SC Unknown 02/13/2006 Administered MMR VACCINE, SC Unknown 11/25/2009 Administered Meningococcal MCV4O Unknown 04/18/2016 Administered IPV, VFC Unknown 11/25/2009 Administered IPV, NON-VFC Unknown 2004 Administered IPV, NON-VFC Unknown 03/01/2005 Administered IPV, NON-VFC Unknown 05/02/2005 Administered Hib, unspecified formulation Unknown 2004 Adminis tered Hib, unspecified formulation Unknown 03/01/2005 Adminis tered Hib, unspecified formulation Unknown 05/02/2005 Adminis tered HEPB VACC PED/ADOL 3 DOSE IM Unknown 2004 Adminis tered HEPB VACC PED/ADOL 3 DOSE IM Unknown 2004 Adminis tered HEPB VACC PED/ADOL 3 DOSE IM Unknown 03/01/2005 Adminis tered HEPB VACC PED/ADOL 3 DOSE IM Unknown 10/08/2014 Adminis tered Hep A, pediatric, unspecifie d formulation Unknown 12/12/2006 Administered HEP A VACC, PED/ADOL, 2 DOSE Unknown 10/08/2014 Adminis tered Fluarix (IIV4) >6 MO NON-VFC Unknown 10/08/2014 Adminis tered DTAP VACCINE > 7 YRS IM Unknown 2004 Administered DTAP VACCINE > 7 YRS IM Unknown 03/01/2005 Administered DTAP VACCINE > 7 YRS IM Unknown 05/02/2005 Administered DTAP VACCINE > 7 YRS IM Unknown 02/13/2006 Administered Social History Tobacco Use: Social History Observation Description Date Details (start date - stop date) Never Smoker NA - NA Social History Sexual History: Social Info Question Answer Notes Details of Sexual History Are you sexually active? No Are you having any sexual problems? No Have you had any sexually transmitted diseases ( STDs)? No Sexual Abuse History: none Sexual History Had sex in the past 12 months (vaginal, oral, or anal)? No Have you ever had a Sexually transmitted disease ? 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 Yes Communication needs (hearing, visual or cognitiv e): No Good ability to interact with other people: Yes Insecurities in? (list all that apply) None Advanced Care Planning Date 03/19/2024 Reviewed/Updated 03/19/2024 Drugs/Alcohol: Social Info Question Answer Notes Drugs Have you used drugs other than those for medical reasons in the past 12 months? No Caffeine Intake: 1-2 cups per day Drug/Alcohol: Social Info Question Answer Notes AUDIT-C (Standard) Did you have a drink containing alcohol in the past year? No Points 0 Interpretation Negative Tobacco Use: Social Info Question Answer Notes Are you a second hand smoker? Are you a second hand smoker? No Tobacco Use/Smoking Are you a nonsmoker Tobacco use other than smoking: Are you an other tobacco user? No Additional Details Category Social Info Options Details Pediatric Miscellaneous Living with Adop jeanna parents, siblings Pets Yes Level of activity Good daily act ivity amount Smoke detectors at home? Yes Firearms at home? No If going to school:Grade 8 th [employer] Toilet trained? Bed wetting? Ful ly toilet trained Parent working out of the house? Yes Concerns of abuse or neglect? No Substance abuse in the family? N o History circumcised? Yes Section Notes: does not smoke cigarettes or marijuana alcohol in the past but not anymore Problems Problem Type SNOMED Code ICD Code Onset Dates Problem Status W/U Status Risk Notes Problem Attention deficit hyperactivity disorder (650273610) ADHD (attention deficit hyperactivity disorder) (F90.9) Active confirmed Problem High blood pressure (57342723) High blood pressure (I10) 03/19/20 24 Active confirmed Problem Exercise-induced asthma (18352430) Exercise-induced asthma (J45.990) Active confirmed Problem Mixed anxiety and depressive disorder (081646063) Anxiety and depression (F41.8) 03/25/20 24 Active confirmed Problem Body mass index 40+ - morbidly obese (188832612) Adult body mass index 50.0-59.9 (Z68.43) 02/21/20 24 Active confirmed Plan Of Treatment No Information Insurance Providers Payer Name Payer Address Payer Phone Subscriber Number Group Number Insured Name Patient Relationship to Insured Coverage Start Date Coverage End Date [facility] [address] [place] [address] [id number] Maribeth Caraballo Self - patient is the insured Medical (General) History Medical History History ICD Code Adopted Exercise induced Asthma Surgical History Surgery Date(Month/Year) hernia surgery
--- OUTSIDE RECORDS SUMMARY | 2025-05-23 00:31 | XMS_ITS | Encounter Summary ---
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 Gender Identity Not on file Sexual Orientation Not on file documented as of this encounter Plan of Treatment Not on file documented as of this encounter Visit Diagnoses Not on filedocumented in this encounter Additional Health Concerns Infection Onset Date Last Indicated Resolved Time COVID-19 Rule Out 11/05/2020 11/05/2020 11/05/2020 6:43 PM CDT COVID-19 Rule Out 08/13/2021 08/13/2021 08/14/2021 7:00 PM LEAD INSTRUCTOR/FLIGHT ATTENDANT COVID-19 Confirmed 08/13/2021 08/13/2021 12:33 AM LEAD INSTRUCTOR/FLIGHT ATTENDANT COVID-19 Rule Out 07/31/2022 07/31/2022 07/31/2022 5:20 PM LEAD INSTRUCTOR/FLIGHT ATTENDANT documented as of this encounter Care Teams Director Of Accounts Payable Relationship Specialty Start Date End Date None, Provider, PCP - General 11/05/20 documented as of this encounter
[2025-05-23] MEDS: SODIUM CHLORIDE 0.9% IV 1,000 ML 999 ML IV CONT (00:50)
[2025-05-23 01:13] LABS: Hematocrit 47.7 % (42.0-52.0); Hemoglobin 16.2 g/dL (14.0-18.0); Immature Granulocyte Percent A 0.1 % (0-0.5); Lymphocytes Absolute Auto 1.35 K/mm3 (0.9-3.2); Mean Corpuscular HGB Conc 34.0 g/dl (32-36); Mean Corpuscular Hemoglobin 30.4 pg (26-34); Mean Corpuscular Volume 89.5 fl (80-100); Nucleated Red Blood Cells Absolute Auto 0.000 K/mm3 (0.0-0.012); Nucleated Red Blood Cells Perc 0.0 % (0.0-0.2); Platelet Count Result 259 k/mm3 (150-375); Red Blood Count 5.33 M/mm3 (4.6-6.20); White Blood Count 7.1 K/mm3 (4.5-10.0)
[2025-05-23 01:27] LABS: Alanine Aminotransferase 74 U/L (6-50); Albumin Level 4.3 g/dL (3.5-5.1); Alkaline Phosphatase 76 U/L (38-126); Anion Gap 12 mmol/L (4-12); Aspartate Amino Transferase 30 U/L (17-59); Bilirubin,Total 0.3 mg/dL (0.2-1.3); Blood Urea Nitrogen 10 mg/dL (9-20); Calcium 8.3 mg/dL (8.4-10.2); Carbon Dioxide 22 mmol/L (22-30); Chloride 108 mmol/L (98-107); Estimated Glomerular Filt Rate > 60; Glucose 123 mg/dL (65-110); Potassium 3.6 mmol/L (3.4-5.0); Sodium 142 mmol/L (137-145); Total Protein 6.9 g/dL (6.3-8.2)
[2025-05-23 02:46] LABS: Cannabinoid Screen Urine Negative (Negative)
== END 2025-05-23 04:43 | disposition home or self-care (01) ==
PROVIDERS: Emergency Provider Physician Assistant
DX: F10.120 Alcohol abuse with intoxication, uncomplicated (principal); Y90.8 Blood alcohol level of 240 mg/100 ml or more
CPT/HCPCS: 36415; 70450; 80053; 80307; 82077; 85025; 96360; 96361; 99284; J7030